=== PATIENT | female | born 1945 | race Caucasian/White ===

== ENCOUNTER 2017-06-15 12:48 | Outpatient (CLI) | payer MEDICARE, BC ==
--- NOTE | 2017-06-15 16:01 | RAD ---
THREE VIEWS THORACIC SPINE: Date: 06-15-17 History: Patient was dusting and reached across table and heard a snap. Patient has thoracic vertebr al body compression fracture. Comparison: 05-04-17 FINDINGS: Again noted is a mild wedge shaped compression fracture involving the T10 vertebral body. Degree of height loss is unchanged from the prior study. The remaining vertebral body heights appear to be wit hin normal limits. Scattered osteophytes are seen within the visualized lower cervical as well as in volving the thoracic spine. There has been no interval change from prior exam. IMPRESSION: 1. No acute osseous abnormality of the thoracic spine. 2. Stable height loss of a T10 vertebral body compression fracture. POS: [facility]
== END 2017-06-15 12:49 | disposition home or self-care (01) ==
LOC: TBSIIMAG 12:48
PROVIDERS: ATTEND Neurological Surgery
DX: S22.078A Other fracture of T9-T10 vertebra, initial encounter for closed fracture (principal)
CPT/HCPCS: 72072